=== PATIENT | female | born 1985 | race Caucasian/White ===

== ENCOUNTER 2021-04-04 07:28 | Outpatient (CLI) | payer OTHER, SELFPAY ==
--- NOTE | 2021-04-04 07:36 | MR_ITS ---
WS: [id number] MRI RIGHT ANKLE non- CONTRAST. COMPARISON: None Multiplanar, multisequence imaging is performed without contrast. There is increased T2 signal on the STIR sequence in the posterior calcaneus at the insertion site of the Achilles tendon. There is additional mild increased signal linearly through the mid talus. No fr actures are identified. Mild narrowing of the tibiotalar joint space. No osteochondral lesions. There is no significant amount of soft tissue edema. No joint effusion. The peroneal brevis and longus ten dons are normal. No signal abnormality within the posterior tibial tendon, flexor hallucis longus ten don or the flexor digitorum tendon. Deltoid ligament and the tibiofibular and talofibular ligaments a ll appear normal. Normal sinus Tarsi. MR/MR ankle RT wo con* [id number] IMPRESSION: 1. No acute fracture. 2. Very small amount of increased signal in the posterior calcaneus at the sit e of the Achilles tendon from tendinopathy. 3. Very small amount of increased marrow signal within the mid talus. May be f rom a recent trabecular injury. No fracture. 4. No torn ligaments or tendons identified.
== END 2021-04-04 07:29 | disposition home or self-care (01) ==
LOC: RADSHAW 07:34
PROVIDERS: PCP Nurse Practitioner Family; Visit Provider Nurse Practitioner Family
DX: S97.81XA Crushing injury of right foot, initial encounter (principal); X58.XXXA Exposure to other specified factors, initial encounter
CPT/HCPCS: 73721

== ENCOUNTER → 2022-10-16 12:56 | Outpatient (BNVA) | payer OTHER, SELFPAY | PROVIDERS: PCP Nurse Practitioner Family; Visit Provider Podiatrist Foot & Ankle Surgery | DX: M79.671 Pain in right foot (principal); M76.61 Achilles tendinitis, right leg | CPT/HCPCS: 73610; 73630 ==

== ENCOUNTER 2022-10-30 06:00 | Outpatient (RCR) | payer OTHER, SELFPAY | END 2022-11-04 23:59 | disposition home or self-care (01) | LOC: MPT 06:00 | PROVIDERS: Visit Provider Podiatrist Foot & Ankle Surgery | DX: M76.61 Achilles tendinitis, right leg (principal) | CPT/HCPCS: 97110; 97161 ==

== ENCOUNTER 2022-11-05 06:00 | Outpatient (RCR) | payer OTHER, SELFPAY | END 2022-12-05 23:59 | disposition home or self-care (01) | LOC: MPT 06:00 | PROVIDERS: Visit Provider Podiatrist Foot & Ankle Surgery | DX: M76.61 Achilles tendinitis, right leg (principal) | CPT/HCPCS: 97110; 97116; 97140; G0283 ==

== ENCOUNTER 2022-12-06 06:00 | Outpatient (RCR) | payer OTHER, SELFPAY | END 2023-01-04 23:59 | disposition home or self-care (01) | LOC: MPT 06:00 | PROVIDERS: Visit Provider Podiatrist Foot & Ankle Surgery | DX: M76.61 Achilles tendinitis, right leg (principal) | CPT/HCPCS: 97110; 97116; 97140; G0283 ==

== ENCOUNTER 2023-01-01 07:54 | Outpatient (CLI) | payer OTHER, SELFPAY ==
--- NOTE | 2023-01-01 08:00 | MR_ITS ---
WS: [id number] EXAMINATION: MR ankle RT wo con* [id number] ORDER DATE: 01/01/2023 8:17 AM HISTORY: Right Achilles pain COMPARISON: MRI ankle April 04, 2021 TECHNIQUE: Axial proton density fat sat, axial T1, sagittal proton density, sagittal STIR, coronal T2 fat sat, and coronal T1 sequences performed. FINDINGS: Distal Achilles is intact. Tiny amount of distal Achilles tendinopathy. Trace fluid in the retrocalca dorinda bursa. Normal ankle mortise. Normal medial and lateral malleolus. No acute avulsions. Normal bessie ar dome. No evidence of avascular necrosis. Normal calcaneus. Normal talocalcaneal articulation. Normal talonavicular articulation. Normal cuboid . Base of 5th metatarsal is normal. Tiny amount of peroneal sheath tendinitis. Peroneal longus and br carolina appear intact. Tenosynovitis involving the flexor tendons, tibialis posterior, flexor digitorum longus, flexor hallucis longus. Normal extensor compartment tendons. Normal cuneiforms. Small amount of fluid and edema along the proximal plantar aponeurosis suspicious for plantar fascitis. Medial insertion measures 4.3 mm in maximum dimension. Trace edema in the dorsa l and plantar calcaneus. MR/MR ankle RT wo con* [id number] IMPRESSION: 1. Distal Achilles is intact. Tiny amount of insertional tendinopathy with tra ce fluid in the retrocalcaneal bursa. No high-grade tears. 2. Thickening of the plantar aponeurosis suspicious for plantar fasciitis with surrounding edema described above. 3. Tenosynovitis involving the peroneal tendon sheath and flexor compartment t endons. 4. Small ankle effusion.
== END 2023-01-01 07:55 | disposition home or self-care (01) ==
PROVIDERS: PCP Nurse Practitioner Family; Visit Provider Podiatrist Foot & Ankle Surgery
DX: M65.871 Other synovitis and tenosynovitis, right ankle and foot (principal); M76.61 Achilles tendinitis, right leg; M25.471 Effusion, right ankle; M79.671 Pain in right foot
CPT/HCPCS: 73721